=== PATIENT | female | born 1990 | race Caucasian/White ===

== ENCOUNTER 2019-01-27 06:31 | Emergency (ER) | payer BC ==
[~2019-01-27] VITALS: Ht 170.2 cm; Wt 81.7 kg
[~2019-01-27 06:31] MED LIST: MEDR150I IM; ORACONB; PROM25 PO; Percocet 5-3251 EACH PO; QUET25 PO
[2019-01-27] MEDS ORDERED: Percocet 5-3251 EACH PO (07:10)
[2019-01-27] MEDS ORDERED: Zithromax250 MG PO (07:10)
== END 2019-01-27 07:31 | disposition home or self-care (01) ==
LOC: ER 06:31
DX: H73.011 Bullous myringitis, right ear (principal); J06.9 Acute upper respiratory infection, unspecified; Z87.891 Personal history of nicotine dependence
CPT/HCPCS: 99283; A9270-GY

== ENCOUNTER → 2024-12-23 | Outpatient (CLI) | payer OTHER ==
[~2024-12-23] MED LIST changes: +Zithromax250 MG PO
[2024-12-23 15:46] LABS: BASOPHILS ABSOLUTE AUTO 0.06 K/mm3 (0.00-0.23); BASOPHILS PERCENT AUTO 1 % (0-2); EOSINOPHILS ABSOLUTE AUTO 0.14 K/mm3 (0.00-0.68); EOSINOPHILS PERCENT AUTO 3 % (0-6); Hematocrit 44.8 % (33.0-51.0); Hemoglobin 14.8 g/dL (11.5-16.0); IMMATURE GRAN ABSOLUTE AUTO 0.01 K/mm3 (0.00-0.10); IMMATURE GRAN PERCENT AUTO 0 % (0-1); LYMPHOCYTES ABSOLUTE AUTO 1.81 K/mm3 (0.84-5.20); LYMPHOCYTES PERCENT AUTO 37 % (21-46); MONOCYTES ABSOLUTE AUTO 0.39 K/mm3 (0.16-1.47); MONOCYTES PERCENT AUTO 8 % (4-13); Mean Corpuscular HGB 28.4 pg (26.0-34.0); Mean Corpuscular Volume 86 fL (80-100); Mean Platelet Volume 11.1 fL (9.1-12.4); NEUTROPHILS PERCENT AUTO 51 % (41-73); Platelet Count 211 K/mm3 (150-400); RDW Coefficient Variation 13.2 % (11.7-14.2); RDW Standard Deviation 41.5 fL (35.1-46.3); Red Blood Cell Count 5.22 M/mm3 (3.80-5.20); White Blood Cell Count 4.91 K/mm3 (4.00-11.30)
[2024-12-23 16:28] LABS: Bacterial Vaginosis PCR Negative (NEGATIVE); Candida Group, PCR NOT DETECTED (NOT DETECT); Candida glabrata-krusei, PCR NOT DETECTED (NOT DETECT)
[2024-12-23 17:42] LABS: Alanine Aminotransfer (ALT/SGP 37 U/L (12-78); Albumin, Blood 4.2 g/dL (3.4-5.0); Albumin/Globulin Ratio 1.2 (0.8-1.8); Alk Phos 70 U/L (50-136); Anion Gap 11 mmol/L (3-11); Aspartate Aminotrans (AST/SGOT 18 U/L (12-37); Bilirubin, Total 0.8 mg/dL (0.1-1.0); Blood Urea Nitrogen 8 mg/dL (8-24); CHOL/HDL RATIO 3.3; CO2, Blood 25 mmol/L (21-32); Calcium, Blood 9.1 mg/dL (8.5-10.1); Chloride, Blood 105 mmol/L (98-108); Cholesterol 184 mg/dL (50-200); Ferritin, Serum 11 ng/mL (8-252); Globulin, Blood 3.6 g/dL (2.2-4.0); Glucose, Blood 87 mg/dL (70-99); HDL Cholesterol 55 mg/dL (>39); Low Density Lipoprotein Chol 111 mg/dL (0-110); Potassium, Blood 3.9 mmol/L (3.5-5.5); Prolactin 22.7 ng/mL; Sodium, Blood 137 mmol/L (136-145); Total Iron Binding Capacity 409 ug/dL (250-450); Total Protein, Blood 7.8 g/dL (6.4-8.2); Triglycerides 89 mg/dL (30-140); Very Low Density Lipoprot Chol 18 mg/dL (6-28)
[2024-12-23 18:06] LABS: Bun/Creatinine Ratio 10.3 (12.0-20.0); Creatinine, Blood 0.77 mg/dL (0.40-1.00); Glomerular Filtration Rate 105 (60-); Iron Serum 176 ug/dL (50-170)
[2024-12-25 23:45] LABS: DHEAS 296 ug/dL (99-340)
[2024-12-28 09:37] LABS: TESTOSTERONE BY MASS SPEC 31 ng/dL (9-55)
[2024-12-28 16:41] LABS: 17-HYDROXYPROGESTERONE 144.49 ng/dL (<=206.00)
== END ==
LOC: LAB 11:55 → LAB SHORT 11:55
PROVIDERS: General Practice
DX: Z01.419 Encounter for gynecological examination (general) (routine) without abnormal findings (principal); E28.2 Polycystic ovarian syndrome; N89.8 Other specified noninflammatory disorders of vagina; R53.83 Other fatigue; R63.5 Abnormal weight gain
CPT/HCPCS: 80053; 80061; 81515; 82306; 82627; 82728; 83036; 83498; 83540; 83550; 84146; 84403; 84443; 85025

== ENCOUNTER → 2025-02-03 | Outpatient (CLI) | payer OTHER ==
[2025-02-03 11:21] LABS: Source, Urine Clean Catch
[2025-02-03 14:49] LABS: Appearance, Urine Clear (Clear); Bilirubin, Urine Neg (Neg); Blood, Urine 2+ (Neg); Color, Urine Yellow (P-Yellow); Glucose Qualitative, Urine Neg (Neg); Ketones, Urine Neg (Neg); Leukocyte Esterase, Urine Neg (Neg); Nitrite, Urine Neg (Neg); Protein, Urine 1+ (Neg); Urobilinogen, Urine NORM (Normal)
[2025-02-03 14:56] LABS: BASOPHILS ABSOLUTE AUTO 0.05 K/mm3 (0.00-0.23); BASOPHILS PERCENT AUTO 1 % (0-2); EOSINOPHILS ABSOLUTE AUTO 0.12 K/mm3 (0.00-0.68); EOSINOPHILS PERCENT AUTO 2 % (0-6); Hematocrit 40.8 % (33.0-51.0); Hemoglobin 13.7 g/dL (11.5-16.0); IMMATURE GRAN ABSOLUTE AUTO 0.01 K/mm3 (0.00-0.10); IMMATURE GRAN PERCENT AUTO 0 % (0-1); LYMPHOCYTES ABSOLUTE AUTO 1.76 K/mm3 (0.84-5.20); LYMPHOCYTES PERCENT AUTO 24 % (21-46); MONOCYTES ABSOLUTE AUTO 0.55 K/mm3 (0.16-1.47); MONOCYTES PERCENT AUTO 7 % (4-13); Mean Corpuscular HGB 28.2 pg (26.0-34.0); Mean Corpuscular HGB Conc 33.6 g/dL (31.5-36.5); Mean Corpuscular Volume 84 fL (80-100); NEUTROPHILS ABSOLUTE AUTO 4.91 K/mm3 (1.96-9.15); NEUTROPHILS PERCENT AUTO 66 % (41-73); Platelet Count 210 K/mm3 (150-400); RDW Coefficient Variation 13.3 % (11.7-14.2); RDW Standard Deviation 41.1 fL (35.1-46.3); Red Blood Cell Count 4.86 M/mm3 (3.80-5.20)
[2025-02-03 15:01] LABS: Bacteria Mod /hpf; Squamous Epithelial Cells Few /hpf (Few); White Blood Cells, Urine 0-2 /hpf (0-5)
[2025-02-05 13:19] LABS: HEPATITIS B SURFACE ANTIGEN Negative (Negative)
[2025-02-05 17:15] LABS: HIV 1,2 COMBO ANTIGEN/ANTIBODY Negative (Negative)
[2025-02-05 17:34] LABS: HEPATITIS C AB CIA INTERP Negative (Negative); HEPATITIS C ANTIBODY CIA INDEX 0.06 IV
== END ==
LOC: LAB 11:17 → LAB SHORT 11:17
PROVIDERS: Registered Nurse Community Health
DX: Z34.91 Encounter for supervision of normal pregnancy, unspecified, first trimester (principal)
CPT/HCPCS: 81001; 84443; 86803; 87086; 87340; 87389

== ENCOUNTER → 2025-02-22 | Outpatient (CLI) | payer OTHER | LOC: LAB SHORT 16:34 → LAB 16:34 | DX: Z34.81 Encounter for supervision of other normal pregnancy, first trimester (principal) ==